=== PATIENT | male | born 1955 | race African-American/Black ===

== ENCOUNTER 2016-07-30 01:44 | Emergency (ER) | payer OTHER ==
[~2016-07-30] VITALS: Ht 190.5 cm; Wt 82.0 kg
[2016-07-30] MEDS ORDERED: LISINOPRIL 10MG TABLET PO ONE (02:15)
[2016-07-30 02:25] LABS: BASOPHILS % 1.2 % (0.0-2.0); EOSINOPHILS % 0.3 % (0.0-5.0); HEMATOCRIT. 36.2 % (42.0-52.0); HEMOGLOBIN. 11.8 g/dL (14.0-18.0); LYMPHOCYTES % 14.8 % (20.0-50.0); MEAN CORPUSCULAR HEMOGLOBIN 31.1 pg (28.0-32.0); MEAN CORPUSCULAR HGB CONC 32.6 g/dL (31.0-37.0); MEAN CORPUSCULAR VOLUME 95.6 fL (80.0-94.0); MEAN PLATELET VOLUME 9.5 fl (7.4-10.4); MONOCYTES % 7.1 % (2.0-8.0); NEUTROPHILS % 76.6 % (40.0-76.0); PLATELET 240 x1000/uL (130-400); RED BLOOD CELL COUNT 3.79 mill/uL (4.7-6.1); RED CELL DISTRIBUTION WIDTH 15.5 % (11.6-14.6); WHITE BLOOD COUNT 7.3 x1000/uL (4.5-11.0)
[2016-07-30 02:26] LABS: CHLORIDE 113 mEq/L (98-107); INDEX HEMOLYSI 1 (1-3); INDEX ICTERIC 1 (1-4); INDEX LIPEMIC 1 (1-3)
[2016-07-30 02:34] LABS: ALANINE AMINOTRANSFERASE 15 IU/L (13-61); ALBUMIN 2.3 g/dL (3.4-5.0); ANION GAP 11; CALCIUM 7.9 mg/dL (8.5-10.1); CARBON DIOXIDE 20 mEq/L (21-32); UREA NITROGEN BLOOD 29 mg/dL (7-21); eGFR 22 mL/min (>60)
[2016-07-30 05:30] VITALS: BP 184/117
== END 2016-07-30 07:20 | disposition left against medical advice (07) ==
LOC: ER 01:45
DX: I13.0 Hypertensive heart and chronic kidney disease with heart failure and stage 1 through stage 4 chronic kidney disease, or unspecified chronic kidney disease (principal); N18.9 Chronic kidney disease, unspecified; I50.9 Heart failure, unspecified; F17.200 Nicotine dependence, unspecified, uncomplicated; F14.10 Cocaine abuse, uncomplicated
CPT/HCPCS: 36415; 71010; 80053; 82962; 83880; 85025; 93005; 99285

== ENCOUNTER 2017-12-19 14:37 | Emergency (ER) | payer MEDICAID, OTHER ==
[~2017-12-19] VITALS: Ht 177.8 cm; Wt 50.0 kg
[~2017-12-19 14:37] MED LIST: METR500T4 PO
[2017-12-19 16:29] LABS: BASOPHILS % 1.4 % (0.0-2.0); EOSINOPHILS % 0.7 % (0.0-5.0); HEMATOCRIT. 44.6 % (42.0-52.0); HEMOGLOBIN. 14.8 g/dL (14.0-18.0); MEAN CORPUSCULAR VOLUME 93.2 fL (80.0-94.0); MEAN PLATELET VOLUME 8.4 fl (7.4-10.4); MONOCYTES % 6.4 % (2.0-8.0); NEUTROPHILS % 50.5 % (40.0-76.0); PLATELET 347 x1000/uL (130-400); RED BLOOD CELL COUNT 4.79 mill/uL (4.7-6.1); RED CELL DISTRIBUTION WIDTH 16.1 % (11.6-14.6)
[2017-12-19 16:31] LABS: CHLORIDE 95 mEq/L (98-107)
[2017-12-19 18:00] VITALS: BP 115/69
== END 2017-12-19 18:20 | disposition home or self-care (01) ==
LOC: ER 14:37
DX: R55 Syncope and collapse (principal); R53.83 Other fatigue; I12.0 Hypertensive chronic kidney disease with stage 5 chronic kidney disease or end stage renal disease; E11.22 Type 2 diabetes mellitus with diabetic chronic kidney disease; N18.6 End stage renal disease; E87.1 Hypo-osmolality and hyponatremia; E87.5 Hyperkalemia; E88.09 Other disorders of plasma-protein metabolism, not elsewhere classified; R79.89 Other specified abnormal findings of blood chemistry; Z99.2 Dependence on renal dialysis; Z79.899 Other long term (current) drug therapy
CPT/HCPCS: 36415; 71045; 80053; 83880; 84484; 85025; 93005; 99285

== ENCOUNTER 2017-12-25 09:57 | Inpatient (IN) | payer MEDICAID ==
[~2017-12-25] VITALS: Ht 190.5 cm; Wt 56.2 kg
[2017-12-25] MEDS ORDERED: LORAZEPAM 2MG/ML CPJ IV ONE (11:15)
[2017-12-25 11:39] LABS: BASOPHILS % 1.6 % (0.0-2.0); EOSINOPHILS % 0.6 % (0.0-5.0); HEMATOCRIT. 40.9 % (42.0-52.0); HEMOGLOBIN. 13.8 g/dL (14.0-18.0); LYMPHOCYTES % 29.6 % (20.0-50.0); MEAN CORPUSCULAR HEMOGLOBIN 31.3 pg (28.0-32.0); MEAN CORPUSCULAR VOLUME 92.9 fL (80.0-94.0); MONOCYTES % 7.4 % (2.0-8.0); NEUTROPHILS % 60.8 % (40.0-76.0); PLATELET 317 x1000/uL (130-400); RED CELL DISTRIBUTION WIDTH 16.2 % (11.6-14.6)
[2017-12-25 11:41] LABS: CHLORIDE 95 mEq/L (98-107)
[2017-12-25 11:46] LABS: AMMONIA 11 uMol/L (<32); ETHANOL BLOOD < 10 mg/dL
[2017-12-25] MEDS ORDERED: MAGNESIUM/ALUMINUM HYDROXIDE/SIMETHICONE 30ML UDC PO PRN (14:15)
[2017-12-25] MEDS ORDERED: ACETAMINOPHEN 650MG SUPP PR PRN (14:15)
[2017-12-25] MEDS ORDERED: HYDROCODONE/ACETAMINOPHEN 5/325MG TABLET PO PRN (14:15)
[2017-12-25] MEDS ORDERED: ACETAMINOPHEN 650MG/20.3ML UDC GT PRN (14:15)
[2017-12-25] MEDS ORDERED: ONDANSETRON HCL 4MG/2ML INJ IV PRN (14:15)
[2017-12-25] MEDS: LORAZEPAM 2MG/ML CPJ IV PRN (14:50)
[2017-12-25 15:08] LABS: FOLIC ACID (FOLATE) SERUM 17.5 ng/mL (>5.38)
[2017-12-25 17:58] VITALS: BP 160/92
[2017-12-25 18:04] VITALS: BP 160/92
[2017-12-25] MEDS: FOLIC ACID 1MG TABLET PO SCH (18:32)
[2017-12-25] MEDS: MULTIVITAMINS,THER W-MINERALS TABLET PO SCH (18:33)
[2017-12-25] MEDS: THIAMINE HCL 100MG TABLET PO SCH (18:41)
[2017-12-25 19:10] LABS: AMMONIA 19 uMol/L (<32)
[2017-12-25 19:26] LABS: T4 FREE 0.91 ng/dL (0.76-1.46)
[2017-12-25 20:00] VITALS: BP 134/91
[2017-12-25 23:59] VITALS: BP 147/89
[2017-12-26 00:25] LABS: CREATINE KINASE 120 IU/L (39-308)
[2017-12-26 00:26] LABS: CREATINE KINASE MB FRACTION 7.8 ng/mL (0.5-3.6)
[2017-12-26] MEDS: IPRATROPIUM/ALBUTEROL 0.5-3(2.5)MG/3ML NEB INH SCH ×3 (02:23→20:50)
[2017-12-26 03:49] VITALS: BP 147/86
[2017-12-26] MEDS: ACETAMINOPHEN 325MG TABLET PO PRN ×2 (04:43→14:18)
[2017-12-26] MEDS: LORAZEPAM 2MG/ML CPJ IV PRN ×2 (04:47→11:11)
[2017-12-26 06:13] LABS: CHLORIDE 95 mEq/L (98-107)
[2017-12-26 06:19] LABS: BASOPHILS % 0.9 % (0.0-2.0); EOSINOPHILS % 0.9 % (0.0-5.0); HEMATOCRIT. 38.4 % (42.0-52.0); HEMOGLOBIN. 12.9 g/dL (14.0-18.0); LYMPHOCYTES % 31.1 % (20.0-50.0); MEAN CORPUSCULAR HEMOGLOBIN 31.3 pg (28.0-32.0); MEAN CORPUSCULAR VOLUME 93.1 fL (80.0-94.0); MEAN PLATELET VOLUME 8.2 fl (7.4-10.4); MONOCYTES % 9.1 % (2.0-8.0); PLATELET 317 x1000/uL (130-400); RED BLOOD CELL COUNT 4.12 mill/uL (4.7-6.1); RED CELL DISTRIBUTION WIDTH 16.2 % (11.6-14.6)
[2017-12-26 06:27] LABS: LDL CHOLESTEROL 62 mg/dL (5-100)
[2017-12-26 06:28] LABS: CREATINE KINASE 127 IU/L (39-308)
[2017-12-26 06:29] LABS: HDL CHOLESTEROL 54 mg/dL (40-59); T4 FREE 0.92 ng/dL (0.76-1.46)
[2017-12-26 06:32] LABS: CREATINE KINASE MB FRACTION 7.6 ng/mL (0.5-3.6)
[2017-12-26 06:40] LABS: PROTHROMBIN TIME 9.9 sec (9.1-11.1)
[2017-12-26 08:00] VITALS: BP 133/83
[2017-12-26] MEDS: MULTIVITAMINS,THER W-MINERALS TABLET PO SCH (11:08)
[2017-12-26] MEDS: FOLIC ACID 1MG TABLET PO SCH (11:08)
[2017-12-26] MEDS: THIAMINE HCL 100MG TABLET PO SCH (11:08)
[2017-12-26 12:02] VITALS: BP 136/100
[2017-12-26] MEDS: CALCIUM ACETATE 667MG CAPSULE PO SCH ×2 (14:16→18:01)
[2017-12-26 16:50] VITALS: BP 152/97
[2017-12-26 20:00] VITALS: BP 119/78
[2017-12-26] MEDS ORDERED: HEPARIN SODIUM 1,000 UNIT/1ML VIAL IV NR (22:15)
[2017-12-27] MEDS: IPRATROPIUM/ALBUTEROL 0.5-3(2.5)MG/3ML NEB INH SCH ×3 (01:22→20:34)
[2017-12-27] MEDS: THIAMINE HCL 100MG TABLET PO SCH (07:38)
[2017-12-27] MEDS: ACETAMINOPHEN 325MG TABLET PO PRN (07:38)
[2017-12-27] MEDS: MULTIVITAMINS,THER W-MINERALS TABLET PO SCH (07:39)
[2017-12-27] MEDS: CALCIUM ACETATE 667MG CAPSULE PO SCH ×3 (07:39→18:09)
[2017-12-27] MEDS: FOLIC ACID 1MG TABLET PO SCH (07:39)
[2017-12-27 07:41] LABS: BASOPHILS % 1.3 % (0.0-2.0); EOSINOPHILS % 1.3 % (0.0-5.0); HEMATOCRIT. 35.9 % (42.0-52.0); HEMOGLOBIN. 12.1 g/dL (14.0-18.0); LYMPHOCYTES % 32.8 % (20.0-50.0); MEAN CORPUSCULAR VOLUME 92.1 fL (80.0-94.0); MEAN PLATELET VOLUME 8.3 fl (7.4-10.4); MONOCYTES % 10.7 % (2.0-8.0); NEUTROPHILS % 53.9 % (40.0-76.0); PLATELET 284 x1000/uL (130-400); RED BLOOD CELL COUNT 3.89 mill/uL (4.7-6.1); RED CELL DISTRIBUTION WIDTH 16.4 % (11.6-14.6)
[2017-12-27 08:27] VITALS: BP 128/92
[2017-12-27 09:05] LABS: PHOSPHORUS 6.5 mg/dL (2.5-4.9)
[2017-12-27] MEDS: LORAZEPAM 2MG/ML CPJ IV PRN (09:21)
[2017-12-27] MEDS ORDERED: ALTEPLASE 100MG/VIAL IV ONE (11:30)
[2017-12-27 12:31] VITALS: BP 141/100
[2017-12-27 16:31] VITALS: BP 158/98
[2017-12-27] MEDS ORDERED: DEXTROSE 50% WATER 50ML SYRINGE IV PRN (19:00)
[2017-12-27] MEDS: BLOOD SUGAR DIAGNOSTIC STRIP TEST SCH ×2 (19:05→20:30)
[2017-12-27] MEDS: INSULIN LISPRO 100 UNITS/ML SUBCUT SCH ×2 (19:07→20:30)
[2017-12-27] MEDS ORDERED: INSULIN LISPRO 100 UNITS/ML SUBCUT SCH (21:00)
[2017-12-28] MEDS: IPRATROPIUM/ALBUTEROL 0.5-3(2.5)MG/3ML NEB INH SCH ×3 (01:35→14:00)
[2017-12-28 02:08] VITALS: BP 109/60
[2017-12-28] MEDS: BLOOD SUGAR DIAGNOSTIC STRIP TEST SCH ×2 (05:41→12:57)
[2017-12-28 07:11] LABS: BASOPHILS % 1.5 % (0.0-2.0); EOSINOPHILS % 1.2 % (0.0-5.0); HEMATOCRIT. 35.2 % (42.0-52.0); HEMOGLOBIN. 11.7 g/dL (14.0-18.0); LYMPHOCYTES % 35.6 % (20.0-50.0); MEAN CORPUSCULAR VOLUME 93.1 fL (80.0-94.0); MEAN PLATELET VOLUME 8.1 fl (7.4-10.4); MONOCYTES % 8.7 % (2.0-8.0); PLATELET 289 x1000/uL (130-400); RED BLOOD CELL COUNT 3.78 mill/uL (4.7-6.1); RED CELL DISTRIBUTION WIDTH 16.3 % (11.6-14.6)
[2017-12-28 07:46] LABS: PHOSPHORUS 6.9 mg/dL (2.5-4.9)
[2017-12-28] MEDS: INSULIN LISPRO 100 UNITS/ML SUBCUT SCH ×2 (07:50→13:11)
[2017-12-28] MEDS: CALCIUM ACETATE 667MG CAPSULE PO SCH ×2 (07:50→13:10)
[2017-12-28 08:00] VITALS: BP 119/79
[2017-12-28] MEDS: MULTIVITAMINS,THER W-MINERALS TABLET PO SCH (08:06)
[2017-12-28] MEDS: THIAMINE HCL 100MG TABLET PO SCH (08:06)
[2017-12-28] MEDS: FOLIC ACID 1MG TABLET PO SCH (08:06)
[2017-12-28 12:00] VITALS: BP 104/81
[2017-12-28] MEDS: ACETAMINOPHEN 325MG TABLET PO PRN (12:54)
[2017-12-28 14:27] LABS: HEMATOCRIT 34.2 % (42.0-52.0); HEMOGLOBIN 11.5 g/dL (14.0-18.0)
[2017-12-28] MEDS ORDERED: HEPARIN SODIUM 1,000 UNIT/1ML VIAL IV NR (15:00)
[2017-12-28 15:21] VITALS: BP 105/63
[2017-12-28 16:00] VITALS: BP 127/84
[2018-01-02 19:06] LABS: BARBITURATE SCREEN Negative ug/mL (Cutoff:0.1); BENZODIAZEPINE SCREEN Negative ng/mL (Cutoff:20); OPIATES SCREEN Negative ng/mL (Cutoff:5); PHENCYCLIDINE SCREEN ++POSITIVE++ ng/mL (Cutoff:8)
== END 2017-12-28 16:20 | disposition home or self-care (01) | DRG 52 ==
LOC: ER 10:35 → 6WST 13:49 → ENRESERV 14:35 → 6WST 16:34
PROVIDERS: ADMIT Internal Medicine; ATTEND Internal Medicine
PROC: 4A00X4Z Measurement of Central Nervous Electrical Activity, External Approach (ICD-10-PCS; principal; 2017-12-26)
PROC: 3E04317 Introduction of Other Thrombolytic into Central Vein, Percutaneous Approach (ICD-10-PCS; 2017-12-27)
PROC: 5A1D70Z Performance of Urinary Filtration, Intermittent, Less than 6 Hours Per Day (ICD-10-PCS; 2017-12-28)
DX: G92 Toxic encephalopathy (principal); E43 Unspecified severe protein-calorie malnutrition; I13.2 Hypertensive heart and chronic kidney disease with heart failure and with stage 5 chronic kidney disease, or end stage renal disease; E11.22 Type 2 diabetes mellitus with diabetic chronic kidney disease; E11.51 Type 2 diabetes mellitus with diabetic peripheral angiopathy without gangrene; D72.829 Elevated white blood cell count, unspecified; E11.621 Type 2 diabetes mellitus with foot ulcer; E78.1 Pure hyperglyceridemia; F17.200 Nicotine dependence, unspecified, uncomplicated; D63.8 Anemia in other chronic diseases classified elsewhere; I50.9 Heart failure, unspecified; F16.10 Hallucinogen abuse, uncomplicated; N18.6 End stage renal disease; N25.81 Secondary hyperparathyroidism of renal origin; L97.929 Non-pressure chronic ulcer of unspecified part of left lower leg with unspecified severity; R55 Syncope and collapse; Z79.84 Long term (current) use of oral hypoglycemic drugs; Z82.49 Family history of ischemic heart disease and other diseases of the circulatory system; Z91.83 Wandering in diseases classified elsewhere; Z99.2 Dependence on renal dialysis; Z79.899 Other long term (current) drug therapy; Z68.1 Body mass index [BMI] 19.9 or less, adult
CPT/HCPCS: 36415; 70450; 70551; 71045; 77001; 80048; 80053; 80061; 80307; 82040; 82140; 82550; 82553; 82607; 82693; 82746; 82962; 83036; 83690; 83735; 84100; 84439; 84443; 84481; 84484; 85014; 85018; 85025; 85610; 92610; 93005; 94640; 96374; 97162; 97167; 99285; A6261; G0482; J1644; J1815; J2060; J2997; J7030; J7040; J7620; A4315

== ENCOUNTER 2018-06-22 00:30 | Inpatient (IN) | payer MEDICAID ==
[~2018-06-22] VITALS: Ht 177.8 cm; Wt 59.9 kg
[2018-06-22 01:38] LABS: BASOPHILS % 0.6 % (0.0-2.0); EOSINOPHILS % 0.2 % (0.0-5.0); HEMATOCRIT. 38.4 % (42.0-52.0); HEMOGLOBIN. 12.6 g/dL (14.0-18.0); LYMPHOCYTES % 14.6 % (20.0-50.0); MEAN CORPUSCULAR HEMOGLOBIN 31.8 pg (28.0-32.0); MEAN CORPUSCULAR VOLUME 96.9 fL (80.0-94.0); MEAN PLATELET VOLUME 9.2 fl (7.4-10.4); MONOCYTES % 7.1 % (2.0-8.0); NEUTROPHILS % 77.5 % (40.0-76.0); PLATELET 280 x1000/uL (130-400); RED BLOOD CELL COUNT 3.96 mill/uL (4.7-6.1); RED CELL DISTRIBUTION WIDTH 16.8 % (11.6-14.6)
[2018-06-22 01:47] LABS: PROTHROMBIN TIME 10.2 sec (9.1-11.1)
[2018-06-22 02:00] LABS: CHLORIDE 100 mEq/L (98-107)
[2018-06-22] MEDS ORDERED: LORAZEPAM 2MG/ML CPJ IV ONE ×2 (02:00→03:15)
[2018-06-22 02:03] LABS: ETHANOL BLOOD < 10 mg/dL
[2018-06-22] MEDS ORDERED: SODIUM CHLORIDE 0.9% 1000ML BAG (SEPSIS BOLUS) IV ONE (03:30)
[2018-06-22] MEDS ORDERED: LEVOFLOXACIN 750MG PREMIX 150 ML IV ONE (03:30)
[2018-06-22] MEDS ORDERED: DIPHENHYDRAMINE 50MG/ML VIAL IV ONE (04:45)
[2018-06-22] MEDS ORDERED: HALOPERIDOL LACTATE 5MG/ML VIAL IM ONE (04:45)
[2018-06-22] MEDS ORDERED: MAGNESIUM/ALUMINUM HYDROXIDE/SIMETHICONE 30ML UDC PO PRN (08:30)
[2018-06-22] MEDS ORDERED: ACETAMINOPHEN 325MG TABLET PO PRN (08:30)
[2018-06-22] MEDS ORDERED: DIPHENHYDRAMINE 50MG/ML VIAL IV PRN (08:30)
[2018-06-22] MEDS ORDERED: GUAIFENESIN 200MG/10ML SUGAR FREE UDC PO PRN (08:30)
[2018-06-22] MEDS ORDERED: ONDANSETRON HCL 4MG/2ML INJ IV PRN (08:30)
[2018-06-22] MEDS ORDERED: ENOXAPARIN 40MG/0.4ML SYR SUBCUT SCH (08:30)
[2018-06-22] MEDS ORDERED: HYDROCODONE/ACETAMINOPHEN 10/325MG TABLET PO PRN (08:30)
[2018-06-22] MEDS ORDERED: DOCUSATE SODIUM 100MG CAPSULE PO PRN (08:30)
[2018-06-22] MEDS ORDERED: IPRATROPIUM/ALBUTEROL 0.5-3(2.5)MG/3ML NEB INH PRN (08:30)
[2018-06-22 09:20] VITALS: BP 175/117
[2018-06-22 12:00] VITALS: BP 176/124
[2018-06-22] MEDS: ASPIRIN 81MG EC TABLET PO SCH (12:00)
[2018-06-22] MEDS: ENOXAPARIN 30MG/0.3ML SYR SUBCUT SCH (14:10)
[2018-06-22] MEDS: SODIUM CHLORIDE 0.9% INJ 3ML FLUSH IVF SCH ×2 (14:11→22:19)
[2018-06-22 15:24] LABS: CREATINE KINASE 260 IU/L (39-308)
[2018-06-22 15:25] LABS: CREATINE KINASE MB FRACTION 7.9 ng/mL (0.5-3.6)
[2018-06-22 16:00] VITALS: BP 196/100
[2018-06-22] MEDS ORDERED: DEXT 5%/0.45% NACL 1000ML 1,000 ML IV ONE (18:45)
[2018-06-22 20:00] VITALS: BP 176/112
[2018-06-22] MEDS: DEXTROSE 50% WATER 50ML SYRINGE IV PRN (20:06)
[2018-06-22] MEDS ORDERED: BLOOD SUGAR DIAGNOSTIC STRIP TEST SCH (21:00)
[2018-06-22] MEDS: INSULIN LISPRO 100 UNITS/ML SUBCUT SCH (21:00)
[2018-06-22] MEDS: BLOOD SUGAR DIAGNOSTIC STRIP TEST SCH (22:18)
[2018-06-22] MEDS: HYDRALAZINE 20MG/ML VIAL IV PRN (22:27)
[2018-06-22 23:21] LABS: CREATINE KINASE 269 IU/L (39-308)
[2018-06-22 23:22] LABS: CREATINE KINASE MB FRACTION 8.4 ng/mL (0.5-3.6)
[2018-06-23] VITALS (8 sets, daily range): BP systolic 148–190; BP diastolic 61–116
[2018-06-23] MEDS: DEXTROSE 50% WATER 50ML SYRINGE IV PRN (06:08)
[2018-06-23] MEDS: BLOOD SUGAR DIAGNOSTIC STRIP TEST SCH ×4 (06:08→20:57)
[2018-06-23] MEDS: SODIUM CHLORIDE 0.9% INJ 3ML FLUSH IVF SCH ×3 (06:10→20:57)
[2018-06-23 06:25] LABS: HEMATOCRIT. 38.6 % (42.0-52.0); HEMOGLOBIN. 12.9 g/dL (14.0-18.0); MEAN CORPUSCULAR HEMOGLOBIN 31.7 pg (28.0-32.0); MEAN CORPUSCULAR VOLUME 94.7 fL (80.0-94.0); MEAN PLATELET VOLUME 9.5 fl (7.4-10.4); PLATELET 269 x1000/uL (130-400); RED BLOOD CELL COUNT 4.08 mill/uL (4.7-6.1)
[2018-06-23 07:30] LABS: CHLORIDE 103 mEq/L (98-107)
[2018-06-23] MEDS: INSULIN LISPRO 100 UNITS/ML SUBCUT SCH ×4 (08:10→20:57)
[2018-06-23] MEDS: ASPIRIN 81MG EC TABLET PO SCH (09:43)
[2018-06-23] MEDS: ENOXAPARIN 30MG/0.3ML SYR SUBCUT SCH (09:45)
[2018-06-23 09:49] LABS: PLATELET ESTIMATE NORMAL
[2018-06-23] MEDS: HYDRALAZINE 20MG/ML VIAL IV PRN (18:45)
[2018-06-23] MEDS: CLONIDINE 0.1MG TABLET PO PRN (19:47)
[2018-06-24] VITALS: BP 161/93
[2018-06-24 04:00] VITALS: BP 171/90
[2018-06-24] MEDS: BLOOD SUGAR DIAGNOSTIC STRIP TEST SCH ×4 (06:22→20:59)
[2018-06-24] MEDS: SODIUM CHLORIDE 0.9% INJ 3ML FLUSH IVF SCH ×3 (06:22→20:59)
[2018-06-24 06:42] LABS: BASOPHILS % 1.2 % (0.0-2.0); EOSINOPHILS % 0.4 % (0.0-5.0); HEMATOCRIT. 36.2 % (42.0-52.0); HEMOGLOBIN. 11.8 g/dL (14.0-18.0); LYMPHOCYTES % 31.8 % (20.0-50.0); MEAN CORPUSCULAR HEMOGLOBIN 31.3 pg (28.0-32.0); MEAN CORPUSCULAR VOLUME 95.7 fL (80.0-94.0); MEAN PLATELET VOLUME 9.7 fl (7.4-10.4); NEUTROPHILS % 54.6 % (40.0-76.0); PLATELET 221 x1000/uL (130-400); RED BLOOD CELL COUNT 3.78 mill/uL (4.7-6.1); RED CELL DISTRIBUTION WIDTH 16.9 % (11.6-14.6)
[2018-06-24] MEDS: INSULIN LISPRO 100 UNITS/ML SUBCUT SCH ×4 (08:10→20:59)
[2018-06-24] MEDS: ENOXAPARIN 30MG/0.3ML SYR SUBCUT SCH (09:00)
[2018-06-24] MEDS: ASPIRIN 81MG EC TABLET PO SCH (09:00)
[2018-06-24] MEDS: LORAZEPAM 2MG/ML CPJ IV PRN (11:38)
[2018-06-24 12:00] VITALS: BP 166/98
[2018-06-24] MEDS ORDERED: CALC-870 MT (12:59)
[2018-06-24] MEDS ORDERED: ATOR40TA70 MT (12:59)
[2018-06-24] MEDS ORDERED: CALC667T5 MT (12:59)
[2018-06-24] MEDS ORDERED: ACET-2853 MT (12:59)
[2018-06-24] MEDS ORDERED: POLY17PO28 MT (12:59)
[2018-06-24] MEDS ORDERED: FOLI1TAB33 MT (12:59)
[2018-06-24] MEDS ORDERED: REPA0.5T3 MT (12:59)
[2018-06-24] MEDS ORDERED: AMYL1CAP61 MT (12:59)
[2018-06-24] MEDS ORDERED: GABA-529 MT (12:59)
[2018-06-24 16:00] VITALS: BP 165/93
[2018-06-24 20:00] VITALS: BP 164/88
[2018-06-24] MEDS: HYDRALAZINE 20MG/ML VIAL IV PRN (20:34)
[2018-06-24] MEDS: CLONIDINE 0.1MG TABLET PO PRN (23:47)
[2018-06-25] VITALS: BP 160/94
[2018-06-25] MEDS: SODIUM CHLORIDE 0.9% INJ 3ML FLUSH IVF SCH ×3 (03:34→21:17)
[2018-06-25 04:00] VITALS: BP 158/88
[2018-06-25] MEDS: BLOOD SUGAR DIAGNOSTIC STRIP TEST SCH ×4 (05:39→21:16)
[2018-06-25] MEDS: HYDROMORPHONE HCL/PF 2MG/ML CPJ IV PRN ×3 (06:23→17:26)
[2018-06-25] MEDS: INSULIN LISPRO 100 UNITS/ML SUBCUT SCH ×4 (07:33→21:00)
[2018-06-25 08:00] VITALS: BP 192/102
[2018-06-25] MEDS: ENOXAPARIN 30MG/0.3ML SYR SUBCUT SCH (10:49)
[2018-06-25] MEDS: ASPIRIN 81MG EC TABLET PO SCH (10:49)
[2018-06-25] MEDS: HYDRALAZINE 20MG/ML VIAL IV PRN (11:05)
[2018-06-25 12:00] VITALS: BP_SYST 150; BP_SYST 184; BP_DIAS 81; BP_DIAS 95
[2018-06-25] MEDS: AMLODIPINE 10MG TABLET PO SCH (15:11)
[2018-06-25 20:00] VITALS: BP 162/81
[2018-06-25] MEDS: CLONIDINE 0.1MG TABLET PO PRN (20:17)
[2018-06-25] MEDS: TAMSULOSIN HCL 0.4MG SR CAPSULE PO SCH (22:39)
[2018-06-26] VITALS: BP 114/65
[2018-06-26] MEDS: LORAZEPAM 2MG/ML CPJ IV PRN ×3 (01:51→21:00)
[2018-06-26 04:00] VITALS: BP 154/92
[2018-06-26] MEDS: SODIUM CHLORIDE 0.9% INJ 3ML FLUSH IVF SCH ×3 (04:08→21:03)
[2018-06-26] MEDS: BLOOD SUGAR DIAGNOSTIC STRIP TEST SCH ×4 (05:16→21:01)
[2018-06-26] MEDS: CLONIDINE 0.1MG TABLET PO PRN (05:24)
[2018-06-26 06:17] LABS: BASOPHILS % 1.6 % (0.0-2.0); EOSINOPHILS % 0.3 % (0.0-5.0); HEMOGLOBIN. 13.4 g/dL (14.0-18.0); LYMPHOCYTES % 32.1 % (20.0-50.0); MEAN CORPUSCULAR HEMOGLOBIN 31.6 pg (28.0-32.0); MEAN CORPUSCULAR VOLUME 94.6 fL (80.0-94.0); MEAN PLATELET VOLUME 9.1 fl (7.4-10.4); MONOCYTES % 13.3 % (2.0-8.0); NEUTROPHILS % 52.7 % (40.0-76.0); PLATELET 240 x1000/uL (130-400); RED BLOOD CELL COUNT 4.23 mill/uL (4.7-6.1); RED CELL DISTRIBUTION WIDTH 16.6 % (11.6-14.6)
[2018-06-26] MEDS: INSULIN LISPRO 100 UNITS/ML SUBCUT SCH ×4 (07:30→21:01)
[2018-06-26 07:57] VITALS: BP 179/96
[2018-06-26] MEDS: TAMSULOSIN HCL 0.4MG SR CAPSULE PO SCH (09:24)
[2018-06-26] MEDS: ASPIRIN 81MG EC TABLET PO SCH (09:25)
[2018-06-26] MEDS: AMLODIPINE 10MG TABLET PO SCH (09:25)
[2018-06-26] MEDS: ENOXAPARIN 30MG/0.3ML SYR SUBCUT SCH (09:25)
[2018-06-26 12:00] VITALS: BP 137/89
[2018-06-26 16:00] VITALS: BP 125/78
[2018-06-26 20:00] VITALS: BP 147/87
[2018-06-26] MEDS: HYDROMORPHONE HCL/PF 2MG/ML CPJ IV PRN (22:31)
[2018-06-27] VITALS (7 sets, daily range): BP systolic 130–165; BP diastolic 65–101
[2018-06-27] MEDS: LORAZEPAM 2MG/ML CPJ IV PRN (04:13)
[2018-06-27] MEDS: SODIUM CHLORIDE 0.9% INJ 3ML FLUSH IVF SCH ×2 (05:15→18:23)
[2018-06-27 06:45] LABS: HEMATOCRIT. 40.7 % (42.0-52.0); HEMOGLOBIN. 13.5 g/dL (14.0-18.0); MEAN CORPUSCULAR HEMOGLOBIN 31.7 pg (28.0-32.0); MEAN CORPUSCULAR VOLUME 95.4 fL (80.0-94.0); MEAN PLATELET VOLUME 9.2 fl (7.4-10.4); PLATELET 214 x1000/uL (130-400); RED BLOOD CELL COUNT 4.27 mill/uL (4.7-6.1); RED CELL DISTRIBUTION WIDTH 16.8 % (11.6-14.6)
[2018-06-27] MEDS: BLOOD SUGAR DIAGNOSTIC STRIP TEST SCH ×3 (06:56→17:58)
[2018-06-27] MEDS: INSULIN LISPRO 100 UNITS/ML SUBCUT SCH ×3 (07:37→18:10)
[2018-06-27] MEDS: AMLODIPINE 10MG TABLET PO SCH ×2 (08:15→08:34)
[2018-06-27] MEDS: ASPIRIN 81MG EC TABLET PO SCH (08:17)
[2018-06-27] MEDS: TAMSULOSIN HCL 0.4MG SR CAPSULE PO SCH ×2 (08:18→08:21)
[2018-06-27] MEDS: ENOXAPARIN 30MG/0.3ML SYR SUBCUT SCH (08:20)
[2018-06-27 12:19] LABS: PLATELET ESTIMATE NORMAL
[2018-06-27] MEDS ORDERED: CARVEDILOL 3.125 MG TABLET PO SCH (15:30)
[2018-07-06 13:07] LABS: BARBITURATE SCREEN Negative ug/mL (Cutoff:0.1); BENZODIAZEPINE SCREEN Negative ng/mL (Cutoff:20); OPIATES SCREEN Negative ng/mL (Cutoff:5); PHENCYCLIDINE SCREEN ++POSITIVE++ ng/mL (Cutoff:8)
== END 2018-06-27 20:35 | disposition home or self-care (01) | DRG 52 ==
LOC: ER 00:30 → MERGE 04:55 → 7WST 04:55 → EDBD 04:55 → ENRESERV 07:05
PROVIDERS: ADMIT Internal Medicine; ATTEND Internal Medicine
PROC: 5A1D70Z Performance of Urinary Filtration, Intermittent, Less than 6 Hours Per Day (ICD-10-PCS; principal; 2018-06-22)
PROC: 5A1D70Z Performance of Urinary Filtration, Intermittent, Less than 6 Hours Per Day (ICD-10-PCS; 2018-06-24)
PROC: 5A1D70Z Performance of Urinary Filtration, Intermittent, Less than 6 Hours Per Day (ICD-10-PCS; 2018-06-26)
DX: G92 Toxic encephalopathy (principal); J96.00 Acute respiratory failure, unspecified whether with hypoxia or hypercapnia; I13.2 Hypertensive heart and chronic kidney disease with heart failure and with stage 5 chronic kidney disease, or end stage renal disease; E44.0 Moderate protein-calorie malnutrition; J84.9 Interstitial pulmonary disease, unspecified; D64.9 Anemia, unspecified; I67.82 Cerebral ischemia; E87.5 Hyperkalemia; N18.6 End stage renal disease; I50.9 Heart failure, unspecified; Z99.2 Dependence on renal dialysis; Z78.1 Physical restraint status; Z68.1 Body mass index [BMI] 19.9 or less, adult; Z79.899 Other long term (current) drug therapy
CPT/HCPCS: 36415; 71045; 76770; 80048; 80307; 80320; 82140; 82550; 82553; 82962; 83880; 84443; 84484; 93005; 93306; 96374; 96375; 97162; 99285; J0360; J1170; J1200; J1630; J1650; J1815; J1956; J2060; J7030; A4315; G0480

== ENCOUNTER 2018-07-26 04:57 | Emergency (ER) | payer MEDICAID ==
[~2018-07-26] VITALS: Ht 190.5 cm; Wt 77.0 kg
[~2018-07-26 04:57] MED LIST changes: +ACET-2853 MT; +AMYL1CAP61 MT; +ATOR40TA70 MT; +CALC-870 MT; +CALC667T5 MT; +FOLI1TAB33 MT; +GABA-529 MT; -METR500T4 PO; +POLY17PO28 MT; +REPA0.5T3 MT
[2018-07-26] MEDS: MORPHINE SULFATE 4 MG/ML CPJ (NOT FOR IM USE) IV STA (06:40)
[2018-07-26 06:45] LABS: MEAN CORPUSCULAR HEMOGLOBIN 31.3 pg (28.0-32.0); MEAN CORPUSCULAR VOLUME 96.6 fL (80.0-94.0); MEAN PLATELET VOLUME 9.1 fl (7.4-10.4); PLATELET 296 x1000/uL (130-400); RED BLOOD CELL COUNT 4.14 mill/uL (4.7-6.1); RED CELL DISTRIBUTION WIDTH 18.6 % (11.6-14.6)
[2018-07-26 06:52] LABS: CHLORIDE 106 mEq/L (98-107)
[2018-07-26 07:56] LABS: PLATELET ESTIMATE NORMAL
[2018-07-26] MEDS: HYDROCODONE/ACETAMINOPHEN 10/325MG TABLET PO ONE (10:08)
[2018-07-26 11:05] VITALS: BP 191/116
== END 2018-07-26 11:08 | disposition home or self-care (01) ==
LOC: ER 04:57
DX: S42.92XA Fracture of left shoulder girdle, part unspecified, initial encounter for closed fracture (principal); E11.22 Type 2 diabetes mellitus with diabetic chronic kidney disease; I12.0 Hypertensive chronic kidney disease with stage 5 chronic kidney disease or end stage renal disease; N18.6 End stage renal disease; F12.10 Cannabis abuse, uncomplicated; F16.10 Hallucinogen abuse, uncomplicated; F17.290 Nicotine dependence, other tobacco product, uncomplicated; Z99.2 Dependence on renal dialysis; W06.XXXA Fall from bed, initial encounter; Y93.89 Activity, other specified; Y92.89 Other specified places as the place of occurrence of the external cause; Y99.8 Other external cause status; Z98.890 Other specified postprocedural states; Z79.899 Other long term (current) drug therapy
CPT/HCPCS: 36415; 71045; 73030; 80053; 85025; 96374; 99284; 99406; J2270; Z7610; A4565

== ENCOUNTER 2019-02-07 01:27 | Emergency (ER) | payer MEDICAID, OTHER ==
[~2019-02-07] VITALS: Ht 175.3 cm; Wt 82.0 kg
[~2019-02-07 01:27] MED LIST changes: -CALC667T5 MT; +CALC667T6 MT
[2019-02-07] MEDS ORDERED: MORPHINE SULFATE 4 MG/ML CPJ (NOT FOR IM USE) IV STA (01:40)
[2019-02-07] MEDS ORDERED: ONDANSETRON HCL 4MG/2ML INJ IV STA (01:40)
[2019-02-07 02:41] LABS: BASOPHILS % 0.8 % (0.0-2.0); EOSINOPHILS % 0.6 % (0.0-5.0); HEMOGLOBIN. 10.9 g/dL (14.0-18.0); LYMPHOCYTES % 12.5 % (20.0-50.0); MEAN CORPUSCULAR VOLUME 96.9 fL (80.0-94.0); MEAN PLATELET VOLUME 9.1 fl (7.4-10.4); MONOCYTES % 7.3 % (2.0-8.0); NEUTROPHILS % 78.8 % (40.0-76.0); PLATELET 258 x1000/uL (130-400); RED BLOOD CELL COUNT 3.41 mill/uL (4.7-6.1); RED CELL DISTRIBUTION WIDTH 16.4 % (11.6-14.6)
[2019-02-07 02:49] LABS: CHLORIDE 102 mEq/L (98-107)
[2019-02-07] MEDS ORDERED: KETOROLAC 15MG/ML VIAL IV ONE (04:45)
[2019-02-07 07:38] VITALS: BP 123/67
== END 2019-02-07 06:07 | disposition short-term general hospital (02) ==
LOC: ER 01:36
DX: R10.9 Unspecified abdominal pain (principal); J90 Pleural effusion, not elsewhere classified; R19.7 Diarrhea, unspecified; I11.0 Hypertensive heart disease with heart failure; I50.9 Heart failure, unspecified; E11.9 Type 2 diabetes mellitus without complications; Z99.2 Dependence on renal dialysis; Z98.2 Presence of cerebrospinal fluid drainage device; F12.10 Cannabis abuse, uncomplicated; F16.10 Hallucinogen abuse, uncomplicated; Z79.899 Other long term (current) drug therapy
CPT/HCPCS: 36415; 71045; 74176; 80053; 82962; 83690; 83880; 84484; 85025; 93005; 96374; 96375; 99285; J1885; J2270; J2405